=== PATIENT | male | born 1980 | race Caucasian/White ===

== ENCOUNTER 2018-01-16 17:40 | Emergency (ER) | payer OTHER ==
[2018-01-16] MEDS: DIPHTH/TET/ACEL PERTUSS (ADULT) 0.5 ML VIAL IM* (19:20)
[2018-01-16] MEDS: HYDROCODONE/APAP (10/325) TAB PO (19:21)
[2018-01-16] MEDS: LIDOCAINE 1%/EPI (MDV) 50 ML INJ INJ (19:30)
== END 2018-01-16 20:54 | disposition home or self-care (01) ==
LOC: FTE 17:40
DX: S81.812A Laceration without foreign body, left lower leg, initial encounter (principal); W25.XXXA Contact with sharp glass, initial encounter; Y92.512 Supermarket, store or market as the place of occurrence of the external cause; Z23 Encounter for immunization
CPT/HCPCS: 12004; 73590; 90471; 90715; 99283-25